=== PATIENT | male | born 1985 | race Caucasian/White ===

== ENCOUNTER 2025-02-11 01:54 | Emergency (ER) | payer OTHER ==
[~2025-02-11] VITALS: Ht 177.8 cm; Wt 75.0 kg
[2025-02-11 02:05] VITALS: TEMP 98.5
[2025-02-11 02:12] VITALS: BP 122/74; PULSE 67; RESP 14; O2SAT 100
[2025-02-11] MEDS ORDERED: KETOROLAC TROMETHAMINE 30 MG/ML VIAL IVP ONE (02:30)
[2025-02-11] MEDS: KETOROLAC TROMETHAMINE 15 MG/ML VIAL IVP ONE (02:33)
[2025-02-11 02:42] LABS: PLATELET COUNT (AUTO) 301 K/uL (150-450); RED BLOOD CELL COUNT(AUTO) 4.56 MIL/uL (4.50-5.90); RED CELL DISTRIBUTION WIDTH 15.3 % (11.5-14.5); WHITE BLOOD COUNT (AUTO) 10.3 K/uL (4.5-11.0)
[2025-02-11 02:49] LABS: CALCIUM, TOTAL 8.7 mg/dL (8.8-10.5); CREATININE 1.02 mg/dL (0.60-1.30); GLOMERULAR FILTR. RATE CALC > 60 mL/min (>60); GLUCOSE,RANDOM 87 mg/dL (70-110); SODIUM SERUM 137 mmol/L (136-145); UREA NITROGEN, BLOOD 15 mg/dL (7-18)
[2025-02-11] MEDS ORDERED: SODIUM CHLORIDE 0.9% 100 ML ONE (02:55)
[2025-02-11] MEDS ORDERED: IOHEXOL 350 MG/ML 100 ML VIAL ONE (02:55)
[2025-02-11] MEDS: DOXYCYCLINE HYCLATE 100 MG in DEXTROSE 5%-WATER 100 ML IV ONE (04:01)
== END 2025-02-11 05:00 ==
LOC: EMS 02:23
DX: L03.211 Cellulitis of face (principal); F17.210 Nicotine dependence, cigarettes, uncomplicated; F15.90 Other stimulant use, unspecified, uncomplicated; Z98.890 Other specified postprocedural states; Z90.89 Acquired absence of other organs
CPT/HCPCS: 99285; 96365; 70487; 96375; 80048; 85025; 36415; J1885; Q9967; J3490; J7060; J7050